=== PATIENT | female | born 1970 | race Caucasian/White ===

== ENCOUNTER 2022-01-06 06:51 | Inpatient (IN) | payer OTHER ==
[~2022-01-06] VITALS: Ht 162.6 cm; Wt 80.3 kg
[~2022-01-06 06:51] MED LIST: GABAPENTIN800 M1 PO; SINGULAIR10 MG PO; SYNTHROID125 MCG PO; VALSARTAN80 MG PO; ZYRTEC10 M3 PO
[2022-01-07] MEDS ORDERED: IBU800 MG PO (07:27)
[2022-01-07] MEDS ORDERED: BUTALBIT-ACETA1 EACH PO (07:29)
== END 2022-01-07 09:26 | disposition home or self-care (01) | DRG 743 ==
LOC: CIR.AMB 06:51 → OB/GYN 16:46
PROVIDERS: ADMIT Obstetrics & Gynecology Gynecology; ATTEND Obstetrics & Gynecology Gynecology
PROC: 0UT74ZZ Resection of Bilateral Fallopian Tubes, Percutaneous Endoscopic Approach (ICD-10-PCS; 2022-01-06)
PROC: 0UT94ZZ Resection of Uterus, Percutaneous Endoscopic Approach (ICD-10-PCS; principal; 2022-01-06 07:00)
DX: D25.1 Intramural leiomyoma of uterus (principal); D25.2 Subserosal leiomyoma of uterus; N85.01 Benign endometrial hyperplasia; Z20.822 Contact with and (suspected) exposure to COVID-19